=== PATIENT | male | born 1995 | race Caucasian/White ===

== ENCOUNTER 2016-08-02 01:13 | Emergency (ER) | payer BC ==
[2016-08-02] MEDS ORDERED: LEVALBUTEROL 1.25 MG INH ONE (01:14)
[2016-08-02] MEDS ORDERED: IPRATROPIUM 0.2 MG/ML NEB INH ONE (01:14)
[2016-08-02] MEDS ORDERED: LEVALBUTEROL 1.25 MG INH STA ×3 (01:14→01:15)
[2016-08-02] MEDS ORDERED: IPRATROPIUM 0.2 MG/ML NEB INH STA (01:14)
[2016-08-02] MEDS ORDERED: methylPREDNISolone SUCCINATE 125 MG/2 ML VIAL IVP STA (01:15)
[2016-08-02] MEDS ORDERED: methylPREDNISolone SUCCINATE 125 MG/2 ML VIAL IVP ONE (01:19)
[2016-08-02] MEDS ORDERED: ALBUTEROL 8 GM INHALER INH STA (02:35)
[2016-08-02] MEDS ORDERED: ALBUTEROL 8 GM INHALER INH ONE (02:39)
== END 2016-08-02 02:45 | disposition home or self-care (01) ==
DX: J45.901 Unspecified asthma with (acute) exacerbation (principal)
CPT/HCPCS: 36415; 71010; 80048; 85025; 94640; 96374; 99283; 99284; A9270